=== PATIENT | male | born 1985 | race Caucasian/White ===

== ENCOUNTER 2020-04-14 16:48 | Emergency (ER) | payer OTHER, SELFPAY ==
[2020-04-14 16:53] VITALS: BP 140/82; PULSE 74; RESP 17; TEMP 36.4; O2SAT 99
--- NOTE | 2020-04-14 17:45 | ED.WOUNDLAC ---
HPI - Wound/Laceration General Chief Complaint: Wound/Laceration Stated Complaint: lac to mouth Time Seen by Provider: 04/14/20 17:01 Source: patient Mode of arrival: ambulatory Limitations: no limitations History of Present Illness HPI narrative: Patient is a 34-year-old male who presents with lower lip laceration that occurred just prior to arrival patient was cutting a branch with a chainsaw when it snapped striking him in the chin causing him to lacerate the lip patient notes aching pain to the lip that is mild nature denies other complaints specifically no loss of consciousness or syncope. Patient notes his tetanus to be up-to-date patient presents from urgent care. Patient in the room in no distress Related Data Home Medications Medication Instructions Recorded Confirmed No Home Medications 04/14/20 04/14/20 Allergies Allergy/AdvReac Type Severity Reaction Status Date / Time No Known Allergies Allergy Verified 04/14/20 16:56 Review of Systems Review of Systems: All systems reviewed & are unremarkable except as noted in HPI and below PMFSH Social History Social History (Updated 04/14/20 @ 17:46 by Jayme Merrill PA-C) Smoking status: Current every day smoker Gender identity (if verbalized by the patient): Male Exam Narrative: Exam Narrative: GENERAL: Well-appearing, well-nourished, and in no acute distress. HEAD: Normocephalic, 1.5 cm superficial linear laceration of the mid lower lip along the inner mucosa does not involve the vermilion border EYES: PERRLA and EOMI. ENT: Nares clear, no rhinorrhea or epistaxis. Mucous membranes moist. Oropharynx without tonsillar hypertrophy exudate or other lesions. NECK: Supple. No adenopathy or masses. CHEST: Clear to auscultation. No respiratory distress. No wheezes rales or rhonchi HEART: Regular rate and rhythm. No murmur heard. EXTREMITIES: Normal range of motion. No edema. No midline cervical tenderness to palpate SKIN: Warm, dry, no rash. NEURO: No focal deficits. Alert and oriented x3. Cranial nerves II through XII grossly intact PSYCH: Normal mood and affect. Course Course Emergency Course: Patient with lip laceration presented from urgent care in no distress wound closed in the emergency department provided with follow-up Vital Signs Vital signs: Vital Signs Temperature 97.5 F L 04/14/20 16:53 Pulse Rate 74 04/14/20 16:53 Respiratory Rate 17 04/14/20 16:53 Blood Pressure 140/82 04/14/20 16:53 Pulse Oximetry 99 04/14/20 16:53 Temperature 97.5 F L 04/14/20 16:53 Pulse Rate 74 04/14/20 16:53 Respiratory Rate 17 04/14/20 16:53 Blood Pressure 140/82 04/14/20 16:53 Pulse Oximetry 99 04/14/20 16:53 Procedures Laceration Laceration 1: Date: 04/14/20 Time: 17:47 Site: lip Size (cm): 2 Description: linear Local Anesthetic: other anesthetic Pre-repair: wound explored and irrigated ====== Skin Level ====== Skin layer closed with: vicryl Size (cm): 5-0 Number of sutures: 3 ====== Subcutaneous Layer ====== ====== Muscle Layer ====== ====== Tendon Layer ====== MDM - Wound/Laceration MDM Narrative Medical decision making narrative: Patient in the room in no distress aware of case findings treatment plan and diagnosis presents with lip laceration which will be closed in the emergency department felt appropriate for outpatient reevaluation agreeing to follow-up as directed or to return if symptoms worsen or concerns provided with reasons to return Discharge Plan Discharge Clinical Impression: Laceration Patient Disposition: Home, Self-Care Condition: Stable Instructions: Antibiotic Form, Laceration (ED) Additional Instructions: Keep wound clean and dry. Do not soak, take baths, or swim until wound is completely healed. If any signs of infection such as redness, swelling, increasing pain, drainage of purule
[2020-04-14 18:42] VITALS: BP 134/86; PULSE 70; RESP 14; O2SAT 97
== END 2020-04-14 18:43 | disposition home or self-care (01) ==
PROVIDERS: Emergency Provider Emergency Medicine
DX: S01.511A Laceration without foreign body of lip, initial encounter (principal); W20.8XXA Other cause of strike by thrown, projected or falling object, initial encounter; Y93.H2 Activity, gardening and landscaping; F17.210 Nicotine dependence, cigarettes, uncomplicated
CPT/HCPCS: 12011; 99282

== ENCOUNTER 2023-08-14 10:43 | Emergency (ER) | payer BC, SELFPAY ==
--- NOTE | ~2023-08-14 | XR_ITS ---
EXAMINATION: XR chest 2V DATE: 08/14/2023 12:28 INDICATION: Cough TECHNIQUE: PA and lateral views of the chest are obtained. COMPARISON: None available FINDINGS: The lungs are free of acute opacities. No pleural effusion or pneumothorax. The cardiomedia stinal silhouette is normal. The visualized bones and soft tissues are unremarkable. IMPRESSION: 1. No acute cardiopulmonary abnormality. Reviewed, dictated and finalized at location [facility]. [facility] [employer]
[2023-08-14 11:13] VITALS: BP 126/92; PULSE 104; RESP 18; TEMP 37; O2SAT 96
--- NOTE | 2023-08-14 12:12 | ED.URI ---
HPI - URI/Sore Throat General Chief Complaint: Abdominal Pain Stated Complaint: cough,abdominal pain Time Seen by Provider: 08/14/23 12:12 Source: patient Mode of arrival: ambulatory Limitations: no limitations History of Present Illness HPI Narrative: 38-year-old male presented for complaint of cough for about 10 days. Endorses shortness of breath with exertion, some wheezing at night, episodes of vomiting with a forceful cough, and decreased appetite. States 5 days ago he ate a leftover burrito that he thought tasted wrong. Since then has had mid abdominal discomfort associated with eating, diarrhea and feels dehydrated. Last ate soup 2 days ago. He denies nausea. Related Data Allergies Allergy/AdvReac Type Severity Reaction Status Date / Time No Known Allergies Allergy Verified 08/14/23 12:19 Review of Systems Review of Systems: CONSTITUTIONAL: Denies body aches, fever, chills, or sweats. EYES: Denies visual changes, redness, or discharge. ENT: Denies rhinorrhea, congestion, sore throat, or otalgia. CARDIOVASCULAR: Denies chest pain, palpitations, or edema. RESPIRATORY: Reports cough, sob, wheezing. GASTROINTESTINAL: Denies abdominal pain, nausea, reports vomiting, diarrhea. SKIN: Denies rash, itching, or wounds. MUSCULOSKELETAL: Denies back pain, joint pain, or myalgia. NEUROLOGIC: Denies headache, numbness, tingling, or weakness. All systems reviewed & are unremarkable except as noted in HPI and below PMFSH Social History Social History Smoking status: Current every day smoker Gender identity (if verbalized by the patient): Male Comments At time of signature, I have reviewed and agree with nursing past medical, surgical, social and family history unless otherwise noted. Please see nursing chart for further information. There is no relevant family history pertinent to the presenting complaint Exam Narrative: GENERAL: mildly ill-appearing, in no acute distress. EYES: EOMI. No redness or drainage. Conjunctivae normal. ENT: Mucous membranes pink and moist. No rhinorrhea. TMs normal bilaterally. Throat normal. Uvula midline. NECK: Normal AROM. Supple. CHEST: No respiratory distress. Wheezing to left base, no cough. HEART: Regular rate and rhythm. No murmur appreciated. ABDOMEN: Soft, nontender, nondistended, normal active bowel sounds. SKIN: Warm, dry, no rash. Capillary refill normal. Normal skin turgor. NEURO: Alert and oriented x3. Gait steady. PSYCH: Normal affect. Course Course Emergency Course: Patient is aware of diagnosis, understands and agrees to treatment plan. Anticipatory guidance given. Patient agrees to follow-up as directed and is aware of reasons to seek care at the emergency department. Portions of this record may have been created with voice recognition software Level of Care: Express Care Visit Vital Signs Vital signs: Vital Signs Temperature 98.6 F 08/14/23 11:13 Pulse Rate 104 H 08/14/23 11:13 Respiratory Rate 18 08/14/23 11:13 Blood Pressure 126/92 H 08/14/23 11:13 Pulse Oximetry 96 08/14/23 11:13 Oxygen Delivery Room Air 08/14/23 11:13 Temperature 98.6 F 08/14/23 11:13 Pulse Rate 104 H 08/14/23 11:13 Respiratory Rate 18 08/14/23 11:13 Blood Pressure 126/92 H 08/14/23 11:13 Pulse Oximetry 96 08/14/23 11:13 Oxygen Delivery Room Air 08/14/23 11:13 MDM - URI/Sore Throat MDM Narrative Medical decision making narrative: Discussed physical exam findings and reviewed negative CXR with pt. Advised ER transfer for further evaluation and management of dehydration symptoms. Pt declined at this time. The patient is AA&Ox3. 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 Given the patients presentation, we commun
== END 2023-08-14 13:04 | disposition left against medical advice (07) ==
PROVIDERS: Emergency Provider Nurse Practitioner Family
DX: J40 Bronchitis, not specified as acute or chronic (principal); R11.10 Vomiting, unspecified; F17.200 Nicotine dependence, unspecified, uncomplicated
CPT/HCPCS: 71046; 99213; G0463

== ENCOUNTER 2023-08-14 18:25 | Emergency (ER) | payer BC, SELFPAY ==
[2023-08-14] VITALS (13 sets, daily range): BP systolic 129–142; BP diastolic 82–91; PULSE 92–127; RESP 17–18; TEMP 36.9; O2SAT 96–100
--- NOTE | ~2023-08-14 | CT_ITS ---
EXAMINATION: CT abdomen pelvis w con INDICATION: Epigastric and right upper quadrant pain TECHNIQUE: Computed tomographic images of the abdomen and pelvis were obtained after the administrati on of 100 cc of Omnipaque 350 intravenous contrast. The dose-length product (DLP) was 341.41 mGy-cm. Automated exposure control and iterative reconstruction technique were employed. COMPARISON: None available FINDINGS: There are widespread tree-in-bud and minimal airspace opacities of the visualized lung base s. The heart size is normal. There is mild wall thickening of the stomach. The liver, spleen, pancrea s, gallbladder, and adrenal glands are normal. The left kidney is unremarkable. 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 No pathologically enlarged abdominal or pelvic lymph nodes are identif ied. No free intraperitoneal gas or evidence of bowel obstruction. The appendix is normal. IMPRESSION: 1. Tree-in-bud airspace opacities of the visualized lung bases, likely bronchiolitis. 2. Wall thickening of the stomach, consistent with gastritis. Reviewed, dictated and finalized at location [facility]. [facility] [employer]CH[employer] IMPRESSION: 1. Tree-in-bud airspace opacities of the visualized lung bases, likely bronchio litis. 2. Wall thickening of the stomach, consistent with gastritis.
[2023-08-14] MEDS: SODIUM CHLORIDE 0.9% IV 1,000 ML 999 ML IV CONT (22:51)
[2023-08-14 22:58] LABS: Basophils Absolute Auto 0.1 K/mm3 (0.0-0.1); Basophils Percent Auto 0.6 % (0.2-1.2); Eosinophils Absolute Auto 0.1 K/mm3 (0-0.3); Eosinophils Percent Auto 1.3 % (0-4.4); Hematocrit 47.8 % (42.0-52.0); Hemoglobin 17.4 g/dL (14.0-18.0); Immature Granulocyte Absolute 0.07 K/mm3 (0.00-0.031); Immature Granulocyte Percent A 0.7 % (0-0.5); Mean Corpuscular HGB Conc 36.4 g/dl (32-36); Mean Corpuscular Hemoglobin 30.5 pg (26-34); Mean Corpuscular Volume 83.7 fl (80-100); Mean Platelet Volume 9.1 fl (7.4-10.4); Monocytes Absolute Auto 0.9 K/mm3 (0.1-0.6); Monocytes Percent Auto 9.2 % (2.6-8.5); Neutrophils Absolute Auto 6.8 K/mm3 (1.3-6.7); Neutrophils Percent Auto 68.2 % (45.5-73.1); Platelet Count Result 397 k/mm3 (150-375); Red Blood Count 5.71 M/mm3 (4.6-6.20)
[2023-08-14 23:11] LABS: Alanine Aminotransferase 15 U/L (6-50); Albumin Level 3.5 g/dL (3.5-5.1); Alkaline Phosphatase 44 U/L (38-126); Anion Gap 6 mmol/L (8-16); Aspartate Amino Transferase 30 U/L (17-59); Bilirubin,Total 0.7 mg/dL (0.2-1.3); Blood Urea Nitrogen 16 mg/dL (9-20); Calcium 8.5 mg/dL (8.4-10.2); Carbon Dioxide 25 mmol/L (22-30); Chloride 99 mmol/L (98-107); Estimated CRCL calculation 106 ml/min; Estimated Glomerular Filt Rate > 60; Glucose 103 mg/dL (65-110); Lipase 73 U/L (23-300); Potassium 4.1 mmol/L (3.4-5.0); Sodium 130 mmol/L (137-145)
[2023-08-14 23:35] LABS: Influenza A QL RT-PCR Negative (Negative); Influenza B QL RT-PCR Negative (Negative); RSV RNA, RT-PCR Negative (Negative); SARS-CoV-2 RNA PCR Positive (Negative)
[2023-08-14 23:47] LABS: Ethanol < 10 mg/dL (<10)
[2023-08-15] VITALS: O2SAT 95
[2023-08-15] MEDS: SODIUM CHLORIDE 0.9% IV 1,000 ML 999 ML IV CONT
[2023-08-15] MEDS: PANTOPRAZOLE SODIUM IV 40 MG VIAL IV PUSH
--- NOTE | 2023-08-15 00:28 | ED.NAVMDI ---
HPI - Nausea/Vomiting/Diarrhea General Chief complaint: Nausea/Vomiting/Diarrhea Stated complaint: Black stools, vomitting Time Seen by Provider: 08/14/23 22:38 Source: patient Mode of arrival: ambulatory Limitations: no limitations History of Present Illness HPI Narrative: patient is a 38-year-old male who presents ED with multiple complaints. The patient reports he ate leftover takeout food last Wednesday. He began feeling ill on Wednesday with nausea, vomiting, intermittent right upper abdominal pain. He feels very dehydrated. He has not been able to keep down much food or drink since Wednesday. Endorses oliguria. He denies having diarrhea, but does state his stools have been occasionally darker in color over the last couple of days. He also reports having a persistent cough, noting that several of his coworkers have had similar coughs. Denies fevers, BRBPR, SOB, CP, dysuria, hematuria. Related Data Allergies Allergy/AdvReac Type Severity Reaction Status Date / Time No Known Allergies Allergy Verified 08/14/23 12:19 Review of Systems Review of Systems: CONSTITUTIONAL: Denies fever, chills, or sweats. CARDIOVASCULAR: Denies chest pain. RESPIRATORY: See HPI. GASTROINTESTINAL: see HPI. GENITOURINARY: Denies dysuria or hematuria. SKIN: Denies rash or itching. MUSCULOSKELETAL: Denies back pain, joint pain, or myalgia. All systems reviewed & are unremarkable except as noted in HPI and below PMFSH Social History Social History Smoking status: Current every day smoker Gender identity (if verbalized by the patient): Male Exam Narrative: GENERAL: Mildly ill appearing, well-nourished, non-toxic, in no acute distress. HEAD: Normocephalic, atraumatic. ENT: MMs dry. NECK: Supple. No adenopathy, no masses. RESPIRATORY: Airway patent, respirations nonlabored. Clear to auscultation bilaterally, no rales, rhonchi, wheezing. No focal lung sounds. Occasional coughing on exam. CARDIOVASCULAR: Regular rate and rhythm without murmurs, rubs, or gallops. Radial pulses 2+ and equal bilaterally. ABDOMINAL: Soft, minimal tenderness in epigastric region/RUQ, nondistended, no hepatosplenomegaly. Normoactive BS. MUSCULOSKELETAL: Moves all extremities. No gross deformities. SKIN: Warm, dry, normal color. No rashes. NEURO: A&O X3. Speech clear. Cranial nerves II-XII grossly intact. Steady gait. No ataxic movements. PSYCHIATRIC: Appropriate mood and affect. Normal interaction. Course Vital Signs Vital signs: Vital Signs Temperature 98.4 F 08/14/23 18:32 Pulse Rate 127 H 08/14/23 18:32 Respiratory Rate 18 08/14/23 18:32 Blood Pressure 142/84 H 08/14/23 18:32 Pulse Oximetry 98 08/14/23 18:32 Temperature 98.4 F 08/14/23 18:32 Pulse Rate 92 08/14/23 21:26 Respiratory Rate 17 08/15/23 00:32 Blood Pressure 144/76 H 08/15/23 00:32 Pulse Oximetry 98 08/15/23 00:32 MDM - Nausea/Vomiting/Diarrhea MDM Narrative Medical decision making narrative: Patient presented to ED with several day history of nausea, vomiting, intermittent upper abdominal pain, cough. Patient's vitals stable upon arrival. In no acute distress. Tachycardia resolved by the time of my evaluation. He does appear very dry on exam. Fluids initiated. CBC with white blood cell count of 10. Stable H&H. Sodium 130 on CMP, otherwise normal electrolytes. Stable kidney function. Normal LFTs and lipase. Urinalysis With 4+ ketones, no evidence for infection. Patient's COVID testing did result positive. This does likely explain patient's symptoms. CT abd/pelvis obtained and without acute findings, no evidence of surgical abnormality. Does show bronchiolitis changes to left lung. Likely covid related. Patient denying chest pain or shortness breath. Patient given 2 L of fluid in the ED in addition to nausea medicine, Protonix, Bentyl. He is feeling better with supportive therapy.
[2023-08-15 00:30] LABS: Appearance Urine Cloudy (Clear); Bacteria Urine None Seen /hpf; Bilirubin Urine Negative (Negative); Blood Urine Negative (Negative); Color Urine Dark Yellow (Yellow); Glucose Urine UA Negative (Negative); Ketones Urine 4+ mg/dL (Negative); Leukocyte Esterase Ur Negative LEU/UL (Negative); Nitrate Urine Negative (Negative); Non Pathogenic Casts 0-2; Protein Urine Trace mg/dL (Negative); RBC Urine 0-2 /hpf (0-2); Specific Grav Ur 1.034 (1.001-1.035); Squamous Epithelial Cell Urine None seen /hpf (Few); WBC Urine 0-5 /hpf
[2023-08-15 00:32] VITALS: BP 144/76; RESP 17; O2SAT 98
[2023-08-15 00:50] LABS: Add Urine Microscopic? YES
[2023-08-15 00:58] LABS: Barbiturate Screen Urine Negative (Negative); Benzodiazepines Screen Urine Negative (Negative)
[2023-08-15 00:59] LABS: Amphetamine Screen Urine Negative (Negative); Cannabinoid Screen Urine Positive (Negative); Cocaine Screen Urine Negative (Negative); Methadone Screen Urine Negative (Negative); Opiate Screen Urine Negative (Negative); Phencyclidine Screen Urine Negative (Negative)
[2023-08-15] MEDS: ONDANSETRON INJ 4 MG/2 ML VIAL IV PUSH ×2 (05:05)
[2023-08-15] MEDS: DICYCLOMINE HCL 10 MG CAPSULE 20 MG PO (05:06)
== END 2023-08-15 05:40 | disposition home or self-care (01) ==
PROVIDERS: Emergency Provider Physician Assistant
DX: U07.1 COVID-19 (principal); K52.9 Noninfective gastroenteritis and colitis, unspecified; E86.0 Dehydration; F17.200 Nicotine dependence, unspecified, uncomplicated
CPT/HCPCS: 36415; 71046; 74177; 80053; 80307; 81001; 83690; 85025; 86850; 86880; 86900; 86901; 86902; 87637; 96361; 96374; 96375; 96376; 99284; A9270; C9113; J2405; J7030; Q9967